=== PATIENT | male | born 1995 | race Caucasian/White ===

== ENCOUNTER 2020-12-06 22:27 | Emergency (ER) | payer SELFPAY ==
[~2020-12-06] VITALS: Ht 182.9 cm; Wt 118.2 kg
[2020-12-06 22:37] VITALS: BP 153/87; PULSE 75; TEMP 97.5
== END 2020-12-06 23:02 | disposition home or self-care (01) ==
LOC: COL.ER 22:27
DX: S61.002A Unspecified open wound of left thumb without damage to nail, initial encounter (principal); W26.0XXA Contact with knife, initial encounter